=== PATIENT | female | born 1990 | race Caucasian/White ===

== ENCOUNTER 2016-07-21 03:15 | Inpatient (IN) | payer BC ==
[2016-07-22] MEDS ORDERED: MOTRIN800 MG PO (09:38)
[2016-07-22] MEDS ORDERED: DERMOPLAST PAIN78 GM TOP (09:39)
[2016-07-22] MEDS ORDERED: TYLENOL325 MG PO (09:39)
== END 2016-07-22 11:45 | disposition short-term general hospital (02) | DRG 775 ==
LOC: LDRIP 03:15
PROVIDERS: ADMIT Family Medicine
PROC: 10E0XZZ Delivery of Products of Conception, External Approach (ICD-10-PCS; principal; 2016-07-21)
PROC: 10S0XZZ Reposition Products of Conception, External Approach (ICD-10-PCS; principal; 2016-07-21)
DX: O70.20 Third degree perineal laceration during delivery, unspecified (principal); D62 Acute posthemorrhagic anemia; Z3A.40 40 weeks gestation of pregnancy; Z37.0 Single live birth; Z23 Encounter for immunization
CPT/HCPCS: A9150; J2300; J2310; J2370; J2590; J2795; J3010; J3430; J3490